=== PATIENT | female | born 1960 | race Caucasian/White ===

== ENCOUNTER 2019-01-14 18:22 | Emergency (ER) | payer OTHER ==
[~2019-01-14] VITALS: Ht 157.5 cm; Wt 68.2 kg
[~2019-01-14 18:22] MED LIST: HUM10VIA SQ; SIMV-260 PO
[2019-01-14] MEDS ORDERED: LINA5TAB PO (18:28)
[2019-01-14] MEDS ORDERED: ACET-66 PO (18:29)
[2019-01-14 18:36] LABS: GLUCOSE,POINT OF CARE 120 MG/DL (70-110)
[2019-01-14] MEDS ORDERED: PROPARACAINE HCL 0.5% 15 ML OPHTHALMIC SOLUTION OU ONE (19:30)
[2019-01-14] MEDS ORDERED: FLUORESCEIN SODIUM 1 MG STRIP OU ONE (19:30)
[2019-01-14] MEDS ORDERED: OFLOXACIN 0.3% 5 ML OPHTHALMIC SOLUTION OS ONE (21:00)
[2019-01-14] MEDS ORDERED: LORazepam 1 MG TABLET PO ONE (21:15)
[2019-01-14 21:34] VITALS: BP 141/78
== END 2019-01-14 21:30 | disposition home or self-care (01) ==
LOC: EMS 18:22
DX: S05.32XA Ocular laceration without prolapse or loss of intraocular tissue, left eye, initial encounter (principal); S05.02XA Injury of conjunctiva and corneal abrasion without foreign body, left eye, initial encounter; E11.9 Type 2 diabetes mellitus without complications; Z79.4 Long term (current) use of insulin; W22.8XXA Striking against or struck by other objects, initial encounter; Y93.89 Activity, other specified; Y92.89 Other specified places as the place of occurrence of the external cause; Y99.8 Other external cause status

== ENCOUNTER 2024-08-02 10:53 | Emergency (ER) | payer OTHER ==
[~2024-08-02] VITALS: Ht 154.9 cm; Wt 68.1 kg
[~2024-08-02 10:53] MED LIST changes: +ACET-3385 PO; +LINA5TAB PO
[2024-08-02 11:15] VITALS: BP 176/81; PULSE 77; RESP 18; TEMP 97.3; O2SAT 96
[2024-08-02] MEDS: PredniSONE 20 MG TABLET PO ONE (11:34)
[2024-08-02] MEDS: MINERAL OIL/PETROLATUM,WHITE PF 3.5 GM OPHTHALMIC OINTMENT OD ONE (11:34)
[2024-08-02] MEDS ORDERED: PRED-554 PO (12:44)
== END 2024-08-02 13:00 | disposition home or self-care (01) ==
LOC: EMS 10:53
DX: G51.0 Bell's palsy (principal); E11.9 Type 2 diabetes mellitus without complications; Z79.4 Long term (current) use of insulin; Z79.84 Long term (current) use of oral hypoglycemic drugs
CPT/HCPCS: 99283; 82962; J7512

== ENCOUNTER 2024-10-06 11:39 | Inpatient (IN) | payer OTHER ==
[~2024-10-06] VITALS: Ht 144.8 cm; Wt 75.0 kg
[~2024-10-06 11:39] MED LIST changes: +PRED-554 PO
[2024-10-06 11:52] VITALS: TEMP 97.7
[2024-10-06 12:15] LABS: BASOPHILS % (AUTO) 0.6 % (0.0-2.0); HEMATOCRIT 33.6 % (36-46); HEMOGLOBIN 11.2 g/dL (12.0-16.0); LYMPHOCYTES # (AUTO) 2.1 K/uL (1.0-4.8); LYMPHOCYTES % (AUTO) 28.3 % (22.0-44.0); MEAN CORPUSCULAR HEMOGLOBIN 30.5 pg (26.0-34.0); MEAN CORPUSCULAR HGB CONC 33.4 G/dL (31.0-37.0); MEAN CORPUSCULAR VOLUME 92 fL (80-100); MONOCYTES # (AUTO) 0.4 K/uL (0.1-1.0); MONOCYTES % (AUTO) 5.9 % (2.0-9.0); NEUTROPHILS # (AUTO) 4.6 K/uL (1.8-7.7); NEUTROPHILS % (AUTO) 63.2 % (40.0-70.0); PLATELET COUNT (AUTO) 280 K/uL (150-450); RED BLOOD CELL COUNT(AUTO) 3.67 MIL/uL (4.00-5.20); RED CELL DISTRIBUTION WIDTH 12.4 % (11.5-14.5); WHITE BLOOD COUNT (AUTO) 7.3 K/uL (4.5-11.0)
[2024-10-06 12:33] LABS: ANION GAP 4 mmol/L (8-16); CALCIUM, TOTAL 8.9 mg/dL (8.8-10.5); CARBON DIOXIDE 31 mmol/L (22-29); CHLORIDE 101 mmol/L (98-107); GLOMERULAR FILTR. RATE CALC 27 mL/min (>60); GLUCOSE,RANDOM 261 mg/dL (70-110); SODIUM SERUM 136 mmol/L (136-145); TROPONIN I-HIGH SENSITIVITY 7 ng/L (<51); UREA NITROGEN, BLOOD 48 mg/dL (7-18)
[2024-10-06 12:35] LABS: POTASSIUM 6.1 mmol/L (3.5-5.1)
[2024-10-06] MEDS: ASPIRIN 81 MG CHEWABLE TABLET PO ONE (12:45)
[2024-10-06] MEDS: FUROSEMIDE 40 MG/4 ML VIAL IVP ONE (12:52)
[2024-10-06] MEDS: SODIUM ZIRCONIUM CYCLOSILICATE 10 GM POWDER PACKET PO ONE (12:52)
[2024-10-06] MEDS: DEXTROSE 50%-WATER 25 GM/50 ML SYRINGE IVP ONE (12:56)
[2024-10-06] MEDS: SODIUM BICARBONATE [ADULT] 8.4% 50 MEQ/50 ML SYRINGE IVP ONE (12:56)
[2024-10-06] MEDS ORDERED: CALCIUM GLUCONATE 0.465 MEQ/ML 10 ML VIAL ONE (12:58)
[2024-10-06] MEDS: CALCIUM GLUCONATE 1,000 MG in DEXTROSE 5%-WATER 50 ML IV ONE (13:04)
[2024-10-06] MEDS: INSULIN REGULAR, HUMAN 100 UNITS/ML IVP ONE (13:05)
[2024-10-06 13:09] VITALS: PULSE 76; RESP 18; O2SAT 97
[2024-10-06] MEDS: ALBUTEROL SULFATE 2.5 MG/0.5 ML NEB SOLUTION NEB ONE (13:09)
[2024-10-06 13:24] VITALS: PULSE 77; RESP 18; O2SAT 99
[2024-10-06 13:31] LABS: GLUCOMETER DEV NAME(LOC) ER.7; GLUCOSE,POINT OF CARE 178 MG/DL (70-110)
[2024-10-06 14:26] LABS: GLUCOMETER DEV NAME(LOC) ERT.7; GLUCOSE,POINT OF CARE 93 MG/DL (70-110)
[2024-10-06] MEDS ORDERED: ONDANSETRON HCL 4 MG/2 ML VIAL IVP PRN (16:00)
[2024-10-06] MEDS ORDERED: BISACODYL 10 MG RECTAL RECTAL SUPPOSITORY PR PRN (16:00)
[2024-10-06] MEDS ORDERED: ACETAMINOPHEN 325 MG TABLET PO PRN (16:00)
[2024-10-06] MEDS: HEPARIN SODIUM,PORCINE 5,000 UNITS/ML VIAL SQ SCH (16:00)
[2024-10-06] MEDS ORDERED: ZOLPIDEM TARTRATE 5 MG TABLET PO PRN (16:00)
[2024-10-06] MEDS ORDERED: MORPHINE SULFATE 2 MG/ML SYRINGE IVP PRN (16:00)
[2024-10-06] MEDS ORDERED: MAGNESIUM HYDROXIDE SUSPENSION 30 ML UDCUP PO PRN (16:00)
[2024-10-06] MEDS ORDERED: HYDROCODONE/ACETAMINOPHEN 5-325 MG TABLET PO PRN (16:00)
[2024-10-06 19:44] VITALS: BP 116/56; PULSE 75; RESP 17; O2SAT 96
[2024-10-06] MEDS: DOCUSATE SODIUM 100 MG CAPSULE PO SCH (20:12)
[2024-10-06] MEDS ORDERED: INSULIN HUMAN NPH-REGULAR 70/30 100 UNITS/ML SQ SCH (21:00)
[2024-10-06] MEDS: SIMVASTATIN 20 MG TABLET PO SCH (21:25)
[2024-10-06 21:45] LABS: GLUCOMETER DEV NAME(LOC) ERT.7; GLUCOSE,POINT OF CARE 326 MG/DL (70-110)
[2024-10-07] MEDS ORDERED: LinaGLIPtin 5 MG TABLET PO SCH (09:00)
[2024-10-07] MEDS ORDERED: PANTOPRAZOLE SODIUM 40 MG DR TABLET PO SCH (09:00)
== END 2024-10-06 22:59 | disposition left against medical advice (07) | DRG 425 ==
LOC: EMS 11:46 → EDH 14:34
PROVIDERS: ADMIT Internal Medicine; ATTEND Internal Medicine
DX: E87.5 Hyperkalemia (principal); D63.8 Anemia in other chronic diseases classified elsewhere; E11.22 Type 2 diabetes mellitus with diabetic chronic kidney disease; I12.9 Hypertensive chronic kidney disease with stage 1 through stage 4 chronic kidney disease, or unspecified chronic kidney disease; Z53.21 Procedure and treatment not carried out due to patient leaving prior to being seen by health care provider; E78.5 Hyperlipidemia, unspecified; E66.3 Overweight; R07.89 Other chest pain; N18.9 Chronic kidney disease, unspecified; Z68.35 Body mass index [BMI] 35.0-35.9, adult
CPT/HCPCS: 71045; 80048; 82962; 83880; 84132; 84484; 85025; 93005; 94640; 99285; G0378; J0610; J1644; J1815; J1940; J3490; J7060; 36415-L1; 36415-TC; J7613